=== PATIENT | female | born 1960 | race Asian ===

== ENCOUNTER 2017-08-27 19:28 | Emergency (ER) | payer MEDICAID, OTHER ==
[~2017-08-27] VITALS: Ht 157.5 cm; Wt 54.5 kg
[2017-08-27] MEDS ORDERED: HYDROCODONE/ACETAMINOPHEN 5-325 MG TABLET PO ONE (22:45)
[2017-08-27 23:59] VITALS: BP 135/62
== END 2017-08-28 00:02 | disposition home or self-care (01) ==
LOC: EMS 19:29
DX: M79.642 Pain in left hand (principal); R20.0 Anesthesia of skin
CPT/HCPCS: 99284